=== PATIENT | female | born 1950 | race Caucasian/White ===

== ENCOUNTER 2018-01-31 14:06 | Outpatient (CLI) | payer OTHER | END 2018-01-31 14:07 | disposition home or self-care (01) | LOC: LAB 14:06 | PROVIDERS: ATTEND Internal Medicine | DX: E87.6 Hypokalemia (principal) | CPT/HCPCS: 36415; 84132 ==

== ENCOUNTER 2018-05-25 11:57 | Outpatient (CLI) ==
--- NOTE | 2018-05-25 15:47 | DI ---
EXAM: PA and lateral views of the chest HISTORY: Cough. COMPARISON: Chest x-ray 12/09/2014 FINDINGS: The cardiomediastinal silhouette is normal. There is no pneumothorax or pleural effusion. There is no consolidation, nodule or mass. There is calcified granuloma in the right lung. 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 IMPRESSION: No acute cardiopulmonary process
== END 2018-05-25 11:58 | disposition home or self-care (01) ==
LOC: RAD 11:57
PROVIDERS: ATTEND Internal Medicine
DX: R05 Cough (principal)